=== PATIENT | female | born 1980 | race Caucasian/White ===

== ENCOUNTER 2017-01-06 21:38 | Emergency (ER) | payer SELFPAY ==
[~2017-01-06] VITALS: Ht 157.5 cm; Wt 66.5 kg
[~2017-01-06 21:38] MED LIST: AMOX875 PO; MMW SSP
[2017-01-06 21:41] VITALS: BP 133/89; PULSE 104; RESP 20; TEMP 99.3; O2SAT 99
[2017-01-06] MEDS ORDERED: ZITHTAB PO (21:48)
[2017-01-06] MEDS ORDERED: BENZ100 PO (22:17)
[2017-01-06] MEDS ORDERED: PRED50 PO (22:17)
[2017-01-06] MEDS ORDERED: ALBUAER3 INH (22:17)
[2017-01-06] MEDS ORDERED: LEVA500T PO (22:17)
--- NOTE | 2017-01-06 22:21 | PD ---
HPI . cough, congestion, head pressure x 2 weeks Chief Complaint: Cold / Flu Symptoms Time Seen by Provider: 22:00 Travel History International Travel<30 days: No Contact w/Intl Traveler<30days: No Traveled to known affect area: No History of Present Illness HPI 36-year-old female with no significant past medical history here with 2 weeks worth of cough, congestion, head pressure despite completing 1-11/20 zpacks. Patient states she has been ill for the past 2 weeks. She admits to fever that is intermittent. The highest temperature being 101. today she had a temperature 100.4 at home. She admits to increased coughing with green mucus. She is a smoker and is still smoking through this ailment. She tells me that she is working a lot and has not had any time to rest. She is taking care of her mother. She denies any chest pain, shortness of breath, nausea, vomiting, or abdominal pain. PFSH Past Medical History Medical History: Denies Significant Hx Diminished Hearing: No Immunizations Current: Yes Tetanus Vaccination: < 5 Years Influenza Vaccination: No ?: Not LMP: NOW Past Surgical History Other Surgery: Yes (skin graft to right foot) Social History Alcohol Use: No Tobacco Use: Yes (one pack daily) Substance Use: No Allergies-Medications (Allergen,Severity, Reaction): Coded Allergies: No Known Allergies (Verified , 01/06/17) Reported Meds & Prescriptions Reported Meds & Active Scripts Active Reported Zithromax Z-Jerzy (Azithromycin) 250 Mg Dspk 250 Mg PO DIRECTED 500 MG (2 tabs) day 1, then 1 tab days 2-5. Review of Systems General / Constitutional: Positive: Fever, Chills Eyes: No: Visual changes HENT: Positive: Rhinitis, Rhinorrhea, Congestion, No: Headaches Cardiovascular: No: Chest Pain or Discomfort Respiratory: Positive: Cough, No: Shortness of Breath Gastrointestinal: No: Abdominal Pain Genitourinary: No: Dysuria Musculoskeletal: No: Pain Skin: No Rash Neurologic: No: Weakness Psychiatric: No: Depression Endocrine: No: Polydipsia Hematologic/Lymphatic: No: Easy Bruising Physical Exam Narrative GENERAL: AAO x 3, no acute distress, Well-nourished, well-developed patient. SKIN: Warm and dry. No visible rashes or bruising. HEAD: Normocephalic and atraumatic. EYES: No scleral icterus. No injection or drainage. ENT: No nasal drainage noted. Mucous membranes pink. Airway patent. Fluid b/l TM. Maxillary sinus tenderness. NECK: Supple, trachea midline. No JVD. CARDIOVASCULAR: Regular rate and rhythm without murmurs, gallops, or rubs. RESPIRATORY: Breath sounds equal diminished bilaterally. No accessory muscle use. No rhonchi or rales. NO audible wheezing. GASTROINTESTINAL: Abdomen soft, non-tender, nondistended. EXTREMITIES: No cyanosis or edema. BACK: Nontender without obvious deformity. No CVA tenderness. PSYCH: AAO x 3, normal affect. Data Data Last Documented VS Vital Signs Date Time Temp Pulse Resp B/P Pulse Ox O2 Delivery O2 Flow Rate FiO2 01/06/17 21:50 99 Room Air 01/06/17 21:49 01/06/17 21:41 99.3 104 20 MDM Medical Decision Making Medical Screen Exam Complete: Yes Emergency Medical Condition: Yes Medical Record Reviewed: Yes (last seen for pharyngitis) Differential Diagnosis sinusitis, bronchitis, PNA Narrative Course 36-year-old female with no significant past medical history here with 2 weeks worth of cough, congestion, head pressure despite completing -11/20 zpacks. Patient states she has been ill for the past 2 weeks. She admits to fever that is intermittent. The highest temperature being 101. today she had a temperature 100.4 at home. She admits to increased coughing with green mucus. She is a smoker and is still smoking through this ailment. She tells me that she is working a lot and has not had any time to rest. She is taking care of her mother. She denies any chest pain, shortness of breath, nausea, vomiting, or abdominal pain.\ Discussed with patient that she has likely two things at the same time: sinusitis and acute bronchitis recommend levaquin since she has failed zithromax. Will cover for PNA as well. Steroid burst, tessalon perles and pro air hfa. Tylenol and Motrin as needed for pain and fever advised if she does not see improvement in 5 days to return to ED for further testing. patient in agreement Patient verbalized understanding of instructions, questions were answered, and thanked me for their care. I advised them if their condition worsens, please return to the nearest emergency room for further care. Diagnosis Primary Impression: Acute bronchitis Qualified Code: J20.9 - Acute bronchitis, unspecified organism Additional Impression: Acute sinusitis Qualified Code: J01.00 - Acute maxillary sinusitis, recurrence not specified Patient Instructions: Acute Bronchitis (ED), General Instructions, Sinusitis ( ED) Additional Instructions: Stop Z-Jerzy. Start Levaquin. Take all medications as prescribed. Use Tylenol or Motrin as needed for pain and fever. As we discussed, return to the emergency room if your symptoms do not start to improve within 5 days or if your condition starts to worsen. Scripts Albuterol 8.5 GM Inh (Proair Hfa 8.5 GM Inh)90 Mcg/Act Aer2 Puff INH Q6H PRN ( SHORTNESS OF BREATH) #1 INHALER Ref 0 108 mcg/actuation Prov:Omaira Kc 01/06/17 Benzonatate (Tessalon Perles)100 Mg Shi376 Mg PO TID PRN (COUGH) #30 CAP Ref 0 Prov:Omaira Kc 01/06/17 Prednisone 50 Mg Tab50 Mg PO DAILY #5 TAB Ref 0 Prov:Omaira Kc 01/06/17 Levofloxacin (Levaquin)500 Mg [id number] Mg PO DAILY 7 Days Ref 0 Prov:Omaira Kc 01/06/17 Disposition: 01 DISCHARGE HOME Condition: Stable Omaira Kc Jan 06, 2017 22:21
== END 2017-01-06 22:31 | disposition home or self-care (01) ==
LOC: PHEFT 21:38
DX: J20.9 Acute bronchitis, unspecified (principal); J01.00 Acute maxillary sinusitis, unspecified; F17.210 Nicotine dependence, cigarettes, uncomplicated
CPT/HCPCS: 99283

== ENCOUNTER 2017-07-06 22:48 | Emergency (ER) | payer SELFPAY ==
[~2017-07-06] VITALS: Ht 157.5 cm; Wt 71.0 kg
[~2017-07-06 22:48] MED LIST changes: +ALBUAER3 INH; -AMOX875 PO; +BENZ100 PO; +LEVA500T PO; -MMW SSP; +PRED50 PO; +ZITHTAB PO
[2017-07-06 22:50] VITALS: BP 145/67; PULSE 84; RESP 16; TEMP 98.6; O2SAT 100
--- NOTE | 2017-07-06 23:22 | PD ---
HPI Chief Complaint: Oral / Dental Pain or Problem Time Seen by Provider: 23:02 Travel History International Travel<30 days: No Contact w/Intl Traveler<30days: No Traveled to known affect area: No History of Present Illness HPI The patient is a 37-year-old female that complains for about 45 minutes of left parotid swelling. She also has a bifrontal headache which is minimal and the patient really came in because she knows the left parotid swelling. She denies any significant pain in the left parotid and she denies any fever. The headache is of gradual onset and minimal. PFSH Past Medical History Diminished Hearing: No Immunizations Current: Yes Tetanus Vaccination: Unknown Influenza Vaccination: No ?: Not LMP: 1 WEEK AGO : 0 Past Surgical History Other Surgery: Yes (skin graft to right foot) Social History Alcohol Use: No Tobacco Use: Yes (one pack daily) Substance Use: No Allergies-Medications (Allergen,Severity, Reaction): Coded Allergies: No Known Allergies (Verified , 07/06/17) Reported Meds & Prescriptions Reported Meds & Active Scripts Active No Active Prescriptions or Reported Medications Review of Systems Except as stated in HPI: all other systems reviewed are Neg Physical Exam Narrative GENERAL: Well-nourished, well-developed patient in no apparent distress. Her vital signs show blood pressure 145/67 but otherwise normal. SKIN: Focused skin assessment warm/dry. HEAD: Normocephalic. EYES: No scleral icterus. No injection or drainage. NECK: Supple, trachea midline. No JVD or lymphadenopathy. CARDIOVASCULAR: Regular rate and rhythm without murmurs, gallops, or rubs. RESPIRATORY: Breath sounds equal bilaterally. No accessory muscle use. GASTROINTESTINAL: Abdomen soft, non-tender, nondistended. MUSCULOSKELETAL: No cyanosis, or edema. BACK: Nontender without obvious deformity. No CVA tenderness. ENT: The tympanic membranes are clear and the throat shows no erythema, exudate nor abscess. The left parotid shows slight swelling but is not particularly tender. There is no erythema or warmth over the left parotid. The right parotid is normal. Data Data Last Documented VS Vital Signs Date Time Temp Pulse Resp B/P Pulse Ox O2 Delivery O2 Flow Rate FiO2 07/06/17 22:50 98.6 84 16 145/67 100 MDM Medical Decision Making Medical Screen Exam Complete: Yes Emergency Medical Condition: Yes Medical Record Reviewed: Yes Differential Diagnosis Left parotid duct obstruction, viral parotitis, bacterial parotitis, dehydration Narrative Course The patient has mild dehydration and left parotid duct obstruction. It is likely the dehydration contributed to the duct obstruction. Plan: The patient should increase her liquid intake and suck on domo to help stimulate the parotid. If this does not go away in 5 or 6 days, she should follow-up with an technical instructor course developer. Diagnosis Primary Impression: Parotid duct obstruction Additional Impression: Mild dehydration Additional Instructions: As we discussed, follow-up with an technical instructor course developer if this does not go away within a week. Suck on a lemon and increase your liquid intake so that he will decrease the viscosity of the parotid secretions. Med/Other Pt SpecificInfo: No Change to Meds Scripts No Active Prescriptions or Reported Meds Disposition: 01 DISCHARGE HOME Condition: Stable Slick Madden MD Jul 06, 2017 23:22
[2017-07-07 00:02] VITALS: PULSE 78; RESP 18; O2SAT 99
== END 2017-07-07 00:05 | disposition home or self-care (01) ==
LOC: PHED 22:48
DX: K11.8 Other diseases of salivary glands (principal); E86.0 Dehydration; R51 Headache; F17.200 Nicotine dependence, unspecified, uncomplicated
CPT/HCPCS: 99282